=== PATIENT | male | born 1990 | race Caucasian/White ===

== ENCOUNTER 2017-02-15 09:04 | Emergency (ER) | payer MEDICAID ==
[2017-02-15 10:26] VITALS: BP 137/99
--- NOTE | 2017-02-15 10:42 | UC ---
FLU HPI - HPI Summary HPI Summary: beginning night with fevers chills fatigue, cough with blood streaks sore throat-loose /water stool began last night - History of Current Complaint Chief Complaint: UCRespiratory Stated Complaint: COUGH/FEVER Time Seen by Provider: 02/15/17 10:19 Hx Obtained From: Patient Onset/Duration: Sudden Onset, Lasting Days - 2, Still Present Severity Currently: Moderate Severity Initially: Moderate Associated Signs & Symptoms: Positive: Fever, Myalgia, Cough, Sore Throat, Nasal Congestion, Headache, Diarrhea Related Hx: Possible Flu/Infectious Exposure - Allergy/Home Medications Allergies/Adverse Reactions: Allergies Allergy/AdvReac Type Severity Reaction Status Date / Time Lactose Intolerance (GI) Allergy Intermediate Hives Verified 02/15/17 10:26 Home Medications: Home Medications Dextromethorphan-Phenylephrine [Day Time Multi-Symptom Co 10-5-325 mg] 2 cap PO PRN 02/15/17 [History] PMH/Surg Hx/FS Hx/Imm Hx Previously Healthy: Yes GI/ History: Gastroesophageal Reflux - Surgical History Surgical History: None - Family History Known Family History: Positive: None, Diabetes, Other - Lung CA, prostate CA, leukemia Negative: Cardiac Disease, Hypertension - Social History Occupation: Employed Full-time Lives: With Family Alcohol Use: Rare Substance Use Type: Marijuana Substance Use Comment - Amount & Last Used: daily Smoking Status (MU): Heavy Every Day Tobacco Smoker Type: Cigarettes Amount Used/How Often: 1-1.5 PPD Length of Time of Smoking/Using Tobacco: since age 15 Have You Smoked in the Last Year: Yes Household Exposure Type: Cigarettes Cessation Counseling: Counseled 3+Min - 10 Min - Immunization History Most Recent Influenza Vaccination: no Review of Systems Constitutional: Fever, Chills, Fatigue Skin: Negative Eyes: Negative ENT: Sore Throat, Nasal Discharge Respiratory: Cough Cardiovascular: Negative Gastrointestinal: Diarrhea Genitourinary: Negative Motor: Negative Neurovascular: Negative Musculoskeletal: Myalgia Neurological: Headache Psychological: Negative Is Patient Immunocompromised?: No All Other Systems Reviewed And Are Negative: Yes Physical Exam Triage Information Reviewed: Yes Appearance: No Pain Distress, Well-Nourished, Ill-Appearing Vital Signs: Initial Vital Signs Temp 98.1 F 02/15/17 10:18 Pulse 81 02/15/17 10:18 Resp 16 02/15/17 10:18 BP 137/99 01/06/18 10:18 Pulse Ox 97 02/15/17 10:18 Vital Signs Reviewed: Yes Eye Exam: Normal Eyes: Positive: Conjunctiva Clear ENT Exam: Normal ENT: Positive: Normal ENT inspection, Hearing grossly normal, Pharynx normal, TMs normal, Uvula midline. Negative: Nasal congestion, Nasal drainage, Tonsillar swelling, Trismus, Muffled voice, Hoarse voice, Dental tenderness Dental Exam: Normal Neck exam: Normal Neck: Positive: Supple, Nontender, No Lymphadenopathy Respiratory Exam: Normal Respiratory: Positive: Chest non-tender, Lungs clear, Normal breath sounds, No respiratory distress Cardiovascular Exam: Normal Cardiovascular: Positive: RRR, No Murmur, Pulses Normal, Brisk Capillary Refill Musculoskeletal Exam: Normal Musculoskeletal: Positive: Strength Intact, ROM Intact, No Edema Neurological Exam: Normal Neurological: Positive: Alert, Muscle Tone Normal Psychological Exam: Normal Skin Exam: Normal Diagnostics - Laboratory Diagnostic Studies Completed/Ordered: Influenza A (+) Flu Course/Dx - Course Course Of Treatment: Rest increase fluids tylenol ibuprofen tamiflu, nicotine cesation inflormation - Differential Dx/Diagnosis Provider Diagnoses: Influenza A Nicotine dependent Discharge - Discharge Plan Condition: Stable Disposition: HOME Prescriptions: Oseltamivir CAP* [Tamiflu CAP*] 75 mg PO BID #10 cap Patient Education Materials: Influenza (ED), How to Stop Smoking (ED) Forms: *School Release Referrals: Nitin Sy [Primary Care Provider] - If Needed
== END 2017-02-15 11:00 | disposition home or self-care (01) ==
LOC: UCCORT 09:04
DX: J10.1 Influenza due to other identified influenza virus with other respiratory manifestations (principal); R19.7 Diarrhea, unspecified; F17.210 Nicotine dependence, cigarettes, uncomplicated; Z91.011 Allergy to milk products
CPT/HCPCS: 87502; 99212; G0463

== ENCOUNTER 2017-09-01 16:22 | Emergency (ER) | payer OTHER ==
[2017-09-01 16:38] VITALS: BP 130/86
[2017-09-01] MEDS ORDERED: Ketorolac INJ* 60 MG/2 ML VIAL IM ONE (17:12)
[2017-09-01] MEDS ORDERED: LORazepam TAB(*) 1 MG PO ONE (17:13)
--- NOTE | 2017-09-01 17:59 | UC ---
Back Pain HPI - HPI Summary HPI Summary: pt was hiking down a steep hill this weekend when he felt and heard a sudden "pop" with instant pain in his low back. tylenol gives no relief and ice helps a little. he notes his r foot feels numb at times but that occurs on occasion and began prior to this. - History of Current Complaint Chief Complaint: UCBackPain Stated Complaint: LOWER BACK COMP Time Seen by Provider: 09/01/17 17:02 Hx Obtained From: Patient Onset/Duration: Sudden Onset Timing: Constant Pain Intensity: 8 Back Pain: Radiates To - side and up low back area Aggravating Factor(s): Movement Alleviating Factor(s): Rest, Cold Associated Signs And Symptoms: Positive: Other - no saddle anesthesia. Negative : Swelling, Fever, Weakness, Numbness, Tingling, Abdominal Pain, Flank Pain, Bladder Incontinence, Bowel Incontinence - Risk Factors AAA Risk Factors: Negative Cauda Equina Risk Factors: Negative Epidural Abscess Risk Factors: Negative - Allergies/Home Medications Allergies/Adverse Reactions: Allergies Allergy/AdvReac Type Severity Reaction Status Date / Time MS Lactose Intolerance (GI) Allergy Intermediate Hives Verified 02/15/17 10:26 [Lactose Intolerance (GI)] Home Medications: Home Medications Acetaminophen [Tylenol Extra Strength] 1,000 mg PO DAILY 09/01/17 [History Confirmed 09/01/17] Omeprazole CAP* [Prilosec CAP* 20 MG] 40 mg PO DAILY 09/01/17 [History Confirmed 09/01/17] hydrOXYzine HCL TAB* [Atarax 10 MG TAB*] 10 mg PO TID PRN 09/01/17 [History Confirmed 09/01/17] PMH/Surg Hx/FS Hx/Imm Hx GI/ History: Gastroesophageal Reflux Psychological History: Anxiety - Surgical History Surgical History: None - Family History Known Family History: Positive: None, Diabetes, Other - Lung CA, prostate CA, leukemia Negative: Cardiac Disease, Hypertension - Social History Alcohol Use: Rare Substance Use Type: None Substance Use Comment - Amount & Last Used: daily Smoking Status (MU): Former Smoker Type: Cigarettes Amount Used/How Often: 1-1.5 PPD Length of Time of Smoking/Using Tobacco: since age 15 Have You Smoked in the Last Year: Yes Household Exposure Type: Cigarettes - Immunization History Most Recent Influenza Vaccination: no Vaccination Up to Date: Yes Review of Systems Constitutional: Negative Skin: Negative Eyes: Negative ENT: Negative Respiratory: Negative Cardiovascular: Negative Gastrointestinal: Negative Genitourinary: Negative Motor: Negative Neurovascular: Negative Musculoskeletal: Other: - low back pain Neurological: Negative Psychological: Negative Is Patient Immunocompromised?: No All Other Systems Reviewed And Are Negative: Yes Physical Exam Triage Information Reviewed: Yes Appearance: Well-Appearing Vital Signs: Initial Vital Signs Temp 98.1 F 09/01/17 16:33 Pulse 75 09/01/17 16:33 Resp 16 09/01/17 16:33 BP 130/86 09/01/17 16:33 Pulse Ox 99 09/01/17 16:33 Vital Signs Reviewed: Yes Eyes: Positive: Conjunctiva Clear ENT: Positive: Normal ENT inspection Neck: Positive: Supple, Nontender, No Lymphadenopathy, Other: - c-spie non tender Respiratory: Positive: Lungs clear, Normal breath sounds Cardiovascular: Positive: RRR, No Murmur Abdomen Description: Positive: Nontender, No Organomegaly, Soft. Negative: Bruit, CVA Tenderness (R), CVA Tenderness (L), Distended, Guarding Bowel Sounds: Positive: Present Musculoskeletal: Positive: Other: - Thoracic spine non tender but lumbar spine and paraspinal mm tender. spasm lumbar region with limted rom due to pain. No saddle anesthesia. 5/5 strength with 2+ reflexes x4. steady gait. no saddle anesthesia. Neurological: Positive: Alert Psychological: Positive: Age Appropriate Behavior Skin Exam: Normal Diagnostics - Radiology No standard instances Radiology Interpretation Completed By: Radiologist - MPRESSION: 1. NO EVIDENCE FOR FRACTURE. 2. DISC SPACE NARROWING AT THE L5-S1 LEVEL. Back Pain Course/Dx - Course Course Of Treatment: No concern for acute abdomen, infection or cauda equina. - Differential Dx/Diagnosis Provider Diagnoses: acute low back pain. Discharge - Sign-Out/Discharge Documenting (check all that apply): Patient Departure - Discharge Plan Condition: Stable Disposition: HOME Prescriptions: Cyclobenzaprine TAB* [Flexeril 10 MG TAB*] 10 mg PO TID #10 tab Naproxen [Naprosyn 500 mg tab] 500 mg PO BID #10 tablet Patient Education Materials: Acute Low Back Pain (ED) Forms: *Work Release Referrals: Nitin Sy [Primary Care Provider] - 3 Days Additional Instructions: START THE PRESCRIPTION MEDICATIONS TOMORROW MORNING. NO DRIVING FOR THE REST OF TODAY. - Billing Disposition and Condition Condition: STABLE Disposition: Home
--- NOTE | 2017-09-01 18:03 | RAD ---
INDICATION: Severe back pain. COMPARISON: There are no prior studies available for comparison. TECHNIQUE: 3 views of the lumbar spine were obtained including lateral, AP and a coned-down lateral view of the lumbar sacral junction. FINDINGS: The vertebra are in normal alignment. No fracture is seen. There is disc space narrowing at the L5-S1 level. The remaining disc spaces appear maintained. IMPRESSION: 1. NO EVIDENCE FOR FRACTURE. 2. DISC SPACE NARROWING AT THE L5-S1 LEVEL.
== END 2017-09-01 18:44 | disposition home or self-care (01) ==
LOC: UCCORT 16:22
DX: M54.5 Low back pain (principal); K21.9 Gastro-esophageal reflux disease without esophagitis; Z87.891 Personal history of nicotine dependence
CPT/HCPCS: 72100; 81003; 96372; 99212; A9270-GY; G0463; J1885

== ENCOUNTER 2017-10-09 18:31 | Emergency (ER) | payer OTHER ==
[2017-10-09 19:06] VITALS: BP 149/84
--- NOTE | 2017-10-09 19:52 | ED ---
Skin Complaint - HPI Summary HPI Summary: 27 year old male presents with pruritic rash to his groin for past week. States over past couple of days has become painful and is a weepy at time. Denies fever , chills, abdominal pain, nausea, vomiting, dysuria, frequency, urgency, penile discharge, testicular pain or swelling. - History of Current Complaint Chief Complaint: UCSkin Time Seen by Provider: 10/09/17 19:31 Stated Complaint: PERSONAL Hx Obtained From: Patient Onset/Duration: Started Days Ago Timing: Constant Onset Severity: Mild Current Severity: Moderate Pain Intensity: 0 Skin Location: Other: - Groin Character: Pruritus, Painful Aggravating Symptom(s): Clothing, Touch Alleviating Symptom(s): Nothing - Allergy/Home Medications Allergies/Adverse Reactions: Allergies Allergy/AdvReac Type Severity Reaction Status Date / Time MS Lactose Intolerance (GI) Allergy Intermediate Hives Verified 10/09/17 19:06 [Lactose Intolerance (GI)] PMH/Surg Hx/FS Hx/Imm Hx Previously Healthy: Yes Endocrine/Hematology History: Denies: Hx Diabetes Cardiovascular History: Denies: Hx Hypertension Respiratory History: Reports: Hx Asthma - as a child Denies: Hx Chronic Obstructive Pulmonary Disease (COPD) GI History: Reports: Hx Gastroesophageal Reflux Disease Denies: Hx Ulcer History: Denies: Hx Renal Disease Psychiatric History: Reports: Hx Anxiety Infectious Disease History: No Infectious Disease History: Denies: Hx Clostridium Difficile, Hx Hepatitis, Hx Human Immunodeficiency Virus (HIV), Hx of Known/Suspected MRSA, Hx Shingles, Hx Tuberculosis, Hx Known/ Suspected VRE, Hx Known/Suspected VRSA, History Other Infectious Disease, Traveled Outside the [place] in Last 30 Days - Family History Known Family History: Positive: Diabetes, Other - Lung CA, prostate CA, leukemia Negative: Cardiac Disease, Hypertension - Social History Occupation: Employed Full-time Lives: With Family Alcohol Use: Occasionally Substance Use Type: Reports: None Substance Use Comment - Amount & Last Used: daily Smoking Status (MU): Current Some Day Smoker Type: Cigars Amount Used/How Often: 1-1.5 PPD Length of Time of Smoking/Using Tobacco: since age 15 Have You Smoked in the Last Year: Yes Review of Systems Constitutional: Negative Gastrointestinal: Negative Genitourinary: Negative Positive: Rash - See HPI Positive: Anxious All Other Systems Reviewed And Are Negative: Yes Physical Exam Triage Information Reviewed: Yes Vital Signs On Initial Exam: Initial Vitals Temp Pulse Resp BP Pulse Ox 98.9 F 83 16 149/84 98 10/09/17 19:02 10/09/17 19:02 10/09/17 19:02 10/09/17 19:02 10/09/17 19:02 Vital Signs Reviewed: Yes Appearance: Positive: Well-Appearing, No Pain Distress, Well-Nourished Skin: Positive: Warm, Dry, Scaly Skin/Lesions - Bilateral inner thighs and perineum with erythema Respiratory/Lung Sounds: Positive: Clear to Auscultation, Breath Sounds Present Cardiovascular: Positive: RRR, S1, S2. Negative: Murmur Abdomen Description: Positive: Nontender, No Organomegaly, Soft Bowel Sounds: Positive: Present Male Genital Exam: Negative: Epididymal Tenderness, Inguinal Tenderness, Scrotum Tenderness (R), Scrotum Tenderness (L), Testicular Tenderness (R), Testicular Tenderness (L), Urethral Discharge Neurological: Positive: Alert, Oriented to Person Place, Time Diagnostics - Vital Signs Vital Signs Temp Pulse Resp BP Pulse Ox 10/09/17 19:02 98.9 F 83 16 149/84 98 - Laboratory Lab Statement: Any lab studies that have been ordered have been reviewed, and results considered in the medical decision making process. Course/Dx - Course Course Of Treatment: 27-year-old male presents with one-week history of pruritic and tender rash to his groin. Rash is consistent with a tinea cruris. Prescribed clotrimazole cream twice a day for 2 weeks. He was also noted to have an elevated blood pressure at time of exam however he has a history of anxiety and is reporting feeling anxious at the time of exam. His been recommended he follow up with his primary care provider within the next 4 weeks for recheck of blood pressure. - Diagnoses Provider Diagnoses: Tinea cruris Discharge - Sign-Out/Discharge Documenting (check all that apply): Patient Departure All imaging exams completed and their final reports reviewed: No Studies - Discharge Plan Condition: Stable Disposition: HOME Prescriptions: Clotrimazole 1% TOPICAL (NF) [Lotrimin 1% TOPICAL (NF)] 1 applic TOPICAL BID #1 tube Patient Education Materials: Mukul Peraza (ED) Forms: *Work Release Referrals: Nitin Sy [Primary Care Provider] - If Needed Additional Instructions: Use clotrimazole. Apply to affected areas twice a day for 14 days. Be sure to shower daily and dry yourself thoroughly. Your blood pressure in the clinic today was slightly elevated. You should schedule an appointment with you primary care provider within the next 4 weeks to have the rechecked. Follow up sooner if your symptoms do not improve. - Billing Disposition and Condition Condition: STABLE Disposition: Home
== END 2017-10-09 20:02 | disposition home or self-care (01) ==
LOC: UCCORT 18:31
DX: B35.6 Tinea cruris (principal)
CPT/HCPCS: 99212; G0463

== ENCOUNTER 2017-11-25 18:24 | Emergency (ER) | payer OTHER ==
[2017-11-25 19:13] VITALS: BP 138/69
[2017-11-25] MEDS ORDERED: Tetan/Diph/Pertus SYR(Tdap)* 0.5 ML SYR(BOOSTRIX) use SYR IM ONE (19:14)
--- NOTE | 2017-11-25 19:30 | UC ---
Skin Complaint HPI - HPI Summary HPI Summary: 27 yo male presents with laceration to left arm sustained earlier today at work. He says that he was working and brushed up against the fence and sustained a small laceration to his left arm. He is unsure the date of his last tetanus and is most concerned about updating this today. - History of Current Complaint Chief Complaint: UCLaceration Time Seen by Provider: 11/25/17 19:14 Stated Complaint: WC- ARM LACERATION Hx Obtained From: Patient Onset/Duration: Sudden Onset Onset Severity: Mild Current Severity: Mild Pain Intensity: 4 Pain Scale Used: 0-10 Numeric - Allergy/Home Medications Allergies/Adverse Reactions: Allergies Allergy/AdvReac Type Severity Reaction Status Date / Time lactose Allergy Intermediate Hives Verified 11/25/17 19:01 Home Medications: Home Medications FLUoxetine CAP* [Prozac CAP*] 1 tab DAILY 11/25/17 [History Confirmed 11/25/17] Review of Systems Constitutional: Negative Skin: Other - Laceration left arm Respiratory: Negative Cardiovascular: Negative Musculoskeletal: Negative Neurological: Negative Psychological: Negative All Other Systems Reviewed And Are Negative: Yes PMH/Surg Hx/FS Hx/Imm Hx GI/ History: Gastroesophageal Reflux Psychological History: Anxiety, Depression - Surgical History Surgical History: None - Family History Known Family History: Positive: Diabetes, Other - Lung CA, prostate CA, leukemia Negative: Cardiac Disease, Hypertension - Social History Occupation: Employed Full-time Lives: With Family Alcohol Use: Weekly Substance Use Type: None Substance Use Comment - Amount & Last Used: daily Smoking Status (MU): Former Smoker Type: Cigars Amount Used/How Often: 1-1.5 PPD Length of Time of Smoking/Using Tobacco: since age 15 Have You Smoked in the Last Year: Yes When Did the Patient Quit Smoking/Using Tobacco: Nov 2017 Household Exposure Type: Cigarettes - Immunization History Most Recent Influenza Vaccination: no Most Recent Tetanus Shot: unknown Vaccination Up to Date: Yes Physical Exam - Summary Physical Exam Summary: GENERAL: NAD. WDWN. No pain distress. SKIN: LEFT FOREARM: Dorsal aspect with 5mm superficial laceration with 2mm width. Wound clean. No bleeding or FB. NECK: Supple. Nontender. No lymphadenopathy. CHEST: No accessory muscle use. Breathing comfortably and in no distress. CV: Pulses intact. Cap refill <2seconds NEURO: Alert. PSYCH: Age appropriate behavior. Triage Information Reviewed: Yes Vital Signs: Initial Vital Signs Temp 97.9 F 11/25/17 19:03 Pulse 75 11/25/17 19:03 Resp 16 11/25/17 19:03 BP 138/69 11/25/17 19:03 Pulse Ox 99 11/25/17 19:03 Vital Signs Reviewed: Yes Laceration Repair - Laceration Repair 1 Description: Linear Laceration Size After Repair: Length (cm) - 0.5 Modified For Repair: No Cleansing Completed Via Routine Prep: Yes Closure Material: Skin Adhesive Closure Method: Single Layer Suture Of: Skin Course/Dx - Course Course Of Treatment: tdap updated today. Wound was cleansed with NS and approximated with dermabond. Band-aid applied. - Diagnoses Provider Diagnoses: Left arm laceration Discharge - Sign-Out/Discharge Documenting (check all that apply): Patient Departure All imaging exams completed and their final reports reviewed: No Studies - Discharge Plan Condition: Stable Disposition: HOME Patient Education Materials: Tdap and Td Vaccines for Adults (ED) Forms: *Work Release Referrals: Nitin Sy [Primary Care Provider] - Additional Instructions: If you develop a fever, shortness of breath, chest pain, new or worsening symptoms - please call your PCP or go to the ED. 1) Please keep the area covered until well healed - Billing Disposition and Condition Condition: STABLE Disposition: Home - Attestation Statements Provider Attestation: I was available for consult. This patient was seen by the JOSÉ LUIS. The patient was not presented to, seen by, or examined by me. -Narinder
== END 2017-11-25 19:51 | disposition home or self-care (01) ==
LOC: UCCORT 18:24
DX: S41.112A Laceration without foreign body of left upper arm, initial encounter (principal); F41.9 Anxiety disorder, unspecified; F32.9 Major depressive disorder, single episode, unspecified; E73.9 Lactose intolerance, unspecified; W22.8XXA Striking against or struck by other objects, initial encounter; Y92.9 Unspecified place or not applicable; Z87.891 Personal history of nicotine dependence
CPT/HCPCS: 12001; 90471; 90715; 99211; G0463

== ENCOUNTER 2018-06-07 07:35 | Emergency (ER) | payer BC, OTHER ==
[2018-06-07 07:59] VITALS: BP 135/70
--- NOTE | 2018-06-07 08:20 | UC ---
Abdominal Pain Male HPI - HPI Summary HPI Summary: Pt presets with sudden onset abdominal pain, frequent loose stools, with mucus and what bright red blood, that began yesterday morning. Pt states that he has generalized abdominal discomfort, decreased appetite and slight nausea. Pt reports that he is feeling better today and that his stools are beginning to firm. - History of Current Complaint Chief Complaint: UCGI Stated Complaint: DIARRHEA X 24 HOURS Time Seen by Provider: 06/07/18 08:10 Hx Obtained From: Patient Onset/Duration: Sudden Onset, Still Present Timing: Constant Severity Initially: Moderate Severity Currently: Mild Pain Intensity: 5 Location: Diffuse Radiates: Yes Radiates to: LLQ, RLQ Character: Aching, Colicy, Dull Aggravating Factor(s): Food Associated Signs And Symptoms: Positive: Decreased Appetite, Diarrhea - Risk Factors Testicular Torsion: Negative Cardiac Risk Factors: Negative - Allergies/Home Medications Allergies/Adverse Reactions: Allergies Allergy/AdvReac Type Severity Reaction Status Date / Time lactose Allergy Intermediate Hives Verified 06/07/18 07:59 Home Medications: Home Medications Levocetirizine Dihydrochloride [Allergy Relief] 5 mg PO DAILY 06/07/18 [History Confirmed 06/07/18] PMH/Surg Hx/FS Hx/Imm Hx Previously Healthy: Yes - Surgical History Surgical History: None - Family History Known Family History: Positive: None, Diabetes, Other - Lung CA, prostate CA, leukemia, GI disorder-name unknown Negative: Cardiac Disease, Hypertension Family History: Lung CA, prostate CA, leukemia - Social History Occupation: Employed Full-time Lives: With Family Alcohol Use: Occasionally Substance Use Type: None Substance Use Comment - Amount & Last Used: daily Smoking Status (MU): Former Smoker Type: Cigars Amount Used/How Often: 1-1.5 PPD Length of Time of Smoking/Using Tobacco: since age 15 Have You Smoked in the Last Year: No When Did the Patient Quit Smoking/Using Tobacco: September 2017 Household Exposure Type: Cigarettes - Immunization History Most Recent Influenza Vaccination: no Most Recent Tetanus Shot: unknown Vaccination Up to Date: Yes Review of Systems All Other Systems Reviewed And Are Negative: Yes Constitutional: Positive: Chills, Fatigue Skin: Positive: Negative Eyes: Positive: Negative ENT: Positive: Negative Respiratory: Positive: Negative Cardiovascular: Positive: Negative Gastrointestinal: Positive: Abdominal Pain, Diarrhea - improved, described as loose muscus and with thgought to be bright red blood., Nausea Genitourinary: Positive: Negative Motor: Positive: Negative Neurovascular: Positive: Negative Musculoskeletal: Positive: Negative Neurological: Positive: Negative Psychological: Positive: Negative Is Patient Immunocompromised?: No Physical Exam Triage Information Reviewed: Yes Appearance: Well-Appearing Vital Signs: Initial Vital Signs Temp 97.9 F 06/07/18 07:48 Pulse 68 06/07/18 07:48 Resp 18 06/07/18 07:48 BP 135/70 06/07/18 07:48 Pulse Ox 100 06/07/18 07:48 Vital Signs Reviewed: Yes Eye Exam: Normal ENT Exam: Normal Dental Exam: Normal Neck exam: Normal Respiratory Exam: Normal Cardiovascular Exam: Normal Abdomen Description: Positive: Other: - generalized tenderness Bowel Sounds: Positive: Present Musculoskeletal Exam: Normal Neurological Exam: Normal Psychological Exam: Normal Skin Exam: Normal Abd Pain Male Course/Dx - Course Course Of Treatment: I discussed the need for the pt to f/u with pcp. He verbalized understanding and agreed to plan of care. - Differential Dx/Clinical Impression Differential Diagnosis/HQI/PQRI: Diverticulitis Provider Diagnosis: Abdominal pain, Mucous in stools Discharge - Sign-Out/Discharge Documenting (check all that apply): Patient Departure All imaging exams completed and their final reports reviewed: No Studies - Discharge Plan Condition: Stable Disposition: HOME Patient Education Materials: Acute Abdominal Pain (ED), Gas and Bloating (ED) Forms: *Work Release Referrals: Nitin Sy [Primary Care Provider] - As Soon As Possible - Billing Disposition and Condition Condition: STABLE Disposition: Home
== END 2018-06-07 08:33 | disposition home or self-care (01) ==
LOC: UCCORT 07:35
DX: R10.9 Unspecified abdominal pain (principal); R19.5 Other fecal abnormalities; Z87.891 Personal history of nicotine dependence; Z91.011 Allergy to milk products
CPT/HCPCS: 99211; G0463

== ENCOUNTER 2018-12-05 20:08 | Emergency (ER) | payer BC ==
[2018-12-05 20:23] VITALS: BP 143/90
[2018-12-05] MEDS ORDERED: Ondansetron ODT TAB* 4 MG PO ONE (20:36)
[2018-12-05] MEDS ORDERED: Loperamide CAP* 2 MG PO ONE (20:37)
--- NOTE | 2018-12-05 20:43 | UC ---
Abdominal Pain Male HPI - HPI Summary HPI Summary: C/O nausea with vomiting starting yesterday. Diarrhea x 6 today. Last Urine output this evening. - History of Current Complaint Chief Complaint: UCAbdominalPain Stated Complaint: ABDOMINAL PAIN/DIARRHEA Time Seen by Provider: 12/05/18 20:29 Hx Obtained From: Patient Onset/Duration: Sudden Onset, Lasting Days - 2, Worse Since - today Severity Initially: Moderate Severity Currently: Moderate Pain Intensity: 7 Location: Diffuse Radiates: No Character: Cramping, Dull Aggravating Factor(s): Food Associated Signs And Symptoms: Positive: Decreased Appetite, Nausea, Vomiting, Diarrhea. Negative: Constipation, Blood in Stool - Allergies/Home Medications Allergies/Adverse Reactions: Allergies Allergy/AdvReac Type Severity Reaction Status Date / Time lactose Allergy Intermediate Hives Verified 12/05/18 20:17 Home Medications: Home Medications ARIPiprazole TAB* [Abilify TAB*] 1 tab DAILY 12/05/18 [History Confirmed ] Citalopram TAB* [Celexa TAB*] 2 tab PO DAILY 12/05/18 [History Confirmed ] busPIRone TAB* [Buspar TAB *] 1 tab DAILY 12/05/18 [History Confirmed 12/05/18] PMH/Surg Hx/FS Hx/Imm Hx Psychological History: Anxiety - Surgical History Surgical History: None - Family History Known Family History: Positive: None, Diabetes, Other - Lung CA, prostate CA, leukemia, GI disorder-name unknown Negative: Cardiac Disease, Hypertension Family History: Lung CA, prostate CA, leukemia - Social History Occupation: Employed Full-time Lives: With Family Alcohol Use: Occasionally Substance Use Type: None Substance Use Comment - Amount & Last Used: daily Smoking Status (MU): Former Smoker Type: Cigars Amount Used/How Often: 1-1.5 PPD Length of Time of Smoking/Using Tobacco: since age 15 Have You Smoked in the Last Year: No When Did the Patient Quit Smoking/Using Tobacco: September 2017 Household Exposure Type: Cigarettes - Immunization History Most Recent Influenza Vaccination: no Most Recent Tetanus Shot: unknown Vaccination Up to Date: Yes Review of Systems All Other Systems Reviewed And Are Negative: Yes Constitutional: Positive: Chills, Fatigue Gastrointestinal: Positive: Abdominal Pain, Vomiting, Diarrhea, Nausea Is Patient Immunocompromised?: No Physical Exam Triage Information Reviewed: Yes Appearance: No Pain Distress, Well-Nourished, Ill-Appearing Vital Signs: Initial Vital Signs Temp 98.2 F 12/05/18 20:18 Pulse 78 12/05/18 20:18 Resp 16 12/05/18 20:18 BP 143/90 12/05/18 20:18 Pulse Ox 98 12/05/18 20:18 Vital Signs Reviewed: Yes Eyes: Positive: Conjunctiva Clear ENT: Positive: Pharynx normal - mucus membranes moist., TMs normal Neck exam: Normal Respiratory Exam: Normal Cardiovascular Exam: Normal Abdomen Description: Positive: No Organomegaly, Soft. Negative: Nontender - Diffusely tender, McBurney's Point Tenderness, Peritoneal Signs Bowel Sounds: Positive: Present Musculoskeletal Exam: Normal Neurological Exam: Normal Psychological Exam: Normal Skin Exam: Normal Abd Pain Male Course/Dx - Differential Dx/Clinical Impression Differential Diagnosis/HQI/PQRI: Appendicitis, Diverticulitis, Pancreatitis Provider Diagnosis: Viral enteritis Discharge ED - Sign-Out/Discharge Documenting (check all that apply): Patient Departure All imaging exams completed and their final reports reviewed: No Studies - Discharge Plan Condition: Stable Disposition: HOME Prescriptions: Loperamide HCl [Loperamide] 2 mg PO Q3HR PRN #30 capsule MDD 8 PRN Reason: Diarrhea Ondansetron ODT TAB* [Zofran 4 MG Odt TAB*] 4 mg PO Q6H PRN #30 tab.odt PRN Reason: Nausea/Vomiting Patient Education Materials: Gastroenteritis (ED), Ondansetron (By mouth), Loperamide (By mouth) Forms: *Work Release Referrals: Nitin Sy [Primary Care Provider] - - Billing Disposition and Condition Condition: STABLE Disposition: Home
== END 2018-12-05 20:59 | disposition home or self-care (01) ==
LOC: UCCORT 20:08
DX: A08.4 Viral intestinal infection, unspecified (principal); F41.9 Anxiety disorder, unspecified; R53.83 Other fatigue; Z87.891 Personal history of nicotine dependence; Z79.899 Other long term (current) drug therapy
CPT/HCPCS: 99212; A9270-GY; G0463

== ENCOUNTER 2019-02-15 08:36 | Emergency (ER) | payer BC ==
[2019-02-15 08:53] VITALS: BP 144/94
--- NOTE | 2019-02-15 09:10 | UC ---
Respiratory Complaint HPI - HPI Summary HPI Summary: 28-year-old male who has had cough and cold symptoms for over one week he states that he drank some beer last evening and vaped which he hasn't done since when he gave up smoking. He states today he was dizzy like the room spinning and also coughing up brownish sputum and at one point some blood. - History of Current Complaint Chief Complaint: UCGeneralIllness Stated Complaint: COUGHING BLOOD Time Seen by Provider: 02/15/19 09:00 Hx Obtained From: Patient Onset/Duration: Gradual Onset Timing: Constant Severity Initially: Mild Severity Currently: Mild Pain Intensity: 0 Character: Cough: Productive - Productive cough of brownish green sputum. Aggravating Factors: Nothing Alleviating Factors: Nothing Associated Signs And Symptoms: Positive: Dizziness - Patient states that he feels like the room is spinning at times. He has not been drinking any fluids today because he wanted to be seen here this morning., URI, Nasal Congestion, Sinus Discomfort - Patient states his frontal sinuses were painful yesterday but not today. - Allergies/Home Medications Allergies/Adverse Reactions: Allergies Allergy/AdvReac Type Severity Reaction Status Date / Time lactose Allergy Intermediate Hives Verified 02/15/19 08:41 PMH/Surg Hx/FS Hx/Imm Hx Previously Healthy: Yes Cardiovascular History: Other - History of a heart murmur Respiratory History: Asthma - Asthma as a child - Surgical History Surgical History: None - Family History Known Family History: Positive: None, Diabetes, Other - Lung CA, prostate CA, leukemia, GI disorder-name unknown Negative: Cardiac Disease, Hypertension Family History: Lung CA, prostate CA, leukemia - Social History Alcohol Use: Occasionally Substance Use Type: None Substance Use Comment - Amount & Last Used: daily Smoking Status (MU): Former Smoker Type: Cigars Amount Used/How Often: 1-1.5 PPD Length of Time of Smoking/Using Tobacco: since age 15 Have You Smoked in the Last Year: No When Did the Patient Quit Smoking/Using Tobacco: 01/2019 Household Exposure Type: Cigarettes - Immunization History Most Recent Influenza Vaccination: no Most Recent Tetanus Shot: unknown Vaccination Up to Date: Yes Review of Systems All Other Systems Reviewed And Are Negative: Yes ENT: Positive: Nasal Discharge, Sinus Congestion, Sinus Pain/Tenderness - Patient had some frontal sinus pain yesterday but not today. Respiratory: Positive: Cough - Productive cough of brownish green sputum today. Neurological: Positive: Other - Mild dizziness today like the room spinning. No nausea or vomiting. Is Patient Immunocompromised?: No Physical Exam Triage Information Reviewed: Yes Appearance: Well-Appearing, No Pain Distress, Well-Nourished Vital Signs: Initial Vital Signs Temp 97.9 F 02/15/19 08:43 Pulse 94 02/15/19 08:43 Resp 24 02/15/19 08:43 BP 144/94 02/15/19 08:43 Pulse Ox 100 02/15/19 08:43 Vital Signs Reviewed: Yes Eyes: Positive: Conjunctiva Clear, Other: - Cora, EOMI, negative eye drift. ENT: Positive: Pharynx normal, Nasal drainage - Clear nasal coryza, TMs normal, Uvula midline Neck: Positive: Supple, Nontender, No Lymphadenopathy Respiratory: Positive: No respiratory distress, No accessory muscle use, Rhonchi - Mild rhonchi in the right upper lobe posteriorly. Good air movement throughout. Cardiovascular: Positive: RRR, No Murmur, Pulses Normal, Brisk Capillary Refill Musculoskeletal Exam: Normal Musculoskeletal: Positive: Strength Intact, ROM Intact, Other: - Good arm and leg strength against resistance. Neurological Exam: Normal Neurological: Positive: Alert, Muscle Tone Normal, Other: - Good peripheral pulses, neuro sensation capillary refill. Good [id number] bilaterally. While standing to do any other tests the patient states that he feels dizzy and needs to sit down. He is awake and alert and oriented. Psychological Exam: Normal Skin Exam: Normal Respiratory Course/Dx - Course Course Of Treatment: Chest x-ray:REPORT: Clear lungs and pleural spaces. Negative for pneumothorax. The heart, pulmonary vasculature, and mediastinal contours are unremarkable. Unremarkable osseous structures and soft tissue contours. IMPRESSION: #. No etiology for hemoptysis evident. Negative exam. The patient was advised not to vape since he had stop smoking 2 weeks ago. He is to go to the emergency room for any worsening symptoms. He is to go home and rest. He did request a work note for the next 2 days which was given to him. He is also to increase fluids since he hasn't been drinking any water today. He is nontoxic. Because he has been coughing up some bloody sputum, brown sputum greenish sputum over the past week, I am going to treated with an antibiotic. - Differential Dx/Diagnosis Provider Diagnosis: Bronchitis, Vertigo Discharge ED - Sign-Out/Discharge Documenting (check all that apply): Patient Departure All imaging exams completed and their final reports reviewed: Yes - Discharge Plan Condition: Fair Disposition: HOME Prescriptions: Amoxicillin/Clavulanate TAB* [Augmentin TAB 875*] 875 mg PO BID 10 Days #20 tab Meclizine TAB* [Antivert 12.5 TAB*] 25 mg PO TID PRN #10 tab PRN Reason: Dizziness Patient Education Materials: Vertigo (DC), Acute Bronchitis (ED) Forms: *Work Release Referrals: Nitin Sy [Primary Care Provider] - Additional Instructions: Go home and rest, increase fluids, take the antibiotic with food. Take the meclizine as needed for dizziness. Go to the emergency room for any worsening symptoms. - Billing Disposition and Condition Condition: FAIR Disposition: Home
== END 2019-02-15 09:55 | disposition home or self-care (01) ==
LOC: UCCORT 08:36
DX: J40 Bronchitis, not specified as acute or chronic (principal); R42 Dizziness and giddiness; Z87.891 Personal history of nicotine dependence; Z91.011 Allergy to milk products
CPT/HCPCS: 71046; 99212; G0463

== ENCOUNTER 2019-04-17 14:23 | Emergency (ER) | payer BC ==
[2019-04-17 14:47] VITALS: BP 134/85
[2019-04-17 14:55] LABS: Influenza A Molecular Negative (Negative); Influenza B Molecular Negative (Negative)
--- NOTE | 2019-04-17 14:56 | UC ---
UC General HPI - HPI Summary HPI Summary: Hot and cold spells this AM, nausea off/on, pains in mid abdomen, "gas pains" worsened after eating, lightheadedness off/on, - History of Current Complaint Chief Complaint: UCGeneralIllness Stated Complaint: CHILLS/STOMACHE ACHE Time Seen by Provider: 04/17/19 14:32 Hx Obtained From: Patient Onset/Duration: Gradual Onset, Lasting Days Onset Severity: Mild Current Severity: Mild Pain Intensity: 0 Associated Signs & Symptoms: Positive: Cough, Diarrhea, Headache, Nausea - Allergy/Home Medications Allergies/Adverse Reactions: Allergies Allergy/AdvReac Type Severity Reaction Status Date / Time lactose AdvReac Intermediate Diarrhea Verified 04/17/19 14:32 Home Medications: Home Medications Omeprazole CAP (NF) [Prilosec CAP* 20 MG] 40 mg PO DAILY 09/01/17 [History Confirmed 04/17/19] ARIPiprazole TAB* [Abilify TAB*] 1 tab DAILY 12/05/18 [History Confirmed ] Citalopram TAB* [Celexa TAB*] 2 tab PO DAILY 12/05/18 [History Confirmed ] Ondansetron ODT TAB* [Zofran 4 MG Odt TAB*] 4 mg PO Q6H PRN #30 tab.odt [Rx Confirmed 04/17/19] busPIRone TAB* [Buspar TAB *] 1 tab DAILY 12/05/18 [History Confirmed 04/17/19] Meclizine TAB* [Antivert 12.5 TAB*] 25 mg PO TID PRN #10 tab 02/15/19 [Rx Confirmed 04/17/19] PMH/Surg Hx/FS Hx/Imm Hx Previously Healthy: Yes - Surgical History Surgical History: None - Family History Known Family History: Positive: None, Diabetes, Other - Lung CA, prostate CA, leukemia, GI disorder-name unknown Negative: Cardiac Disease, Hypertension Family History: Lung CA, prostate CA, leukemia - Social History Alcohol Use: Occasionally Substance Use Type: None Substance Use Comment - Amount & Last Used: daily Smoking Status (MU): Light Every Day Tobacco Smoker Type: Cigars Amount Used/How Often: 1-1.5 PPD Length of Time of Smoking/Using Tobacco: since age 15 Have You Smoked in the Last Year: No When Did the Patient Quit Smoking/Using Tobacco: 01/2019 Household Exposure Type: Cigarettes - Immunization History Most Recent Influenza Vaccination: no Most Recent Tetanus Shot: unknown Vaccination Up to Date: Yes Review of Systems All Other Systems Reviewed And Are Negative: Yes Constitutional: Positive: Chills, Fatigue ENT: Positive: Sore Throat Respiratory: Positive: Cough Gastrointestinal: Positive: Diarrhea, Nausea Musculoskeletal: Positive: Myalgia Neurological/Mental Status: Positive: Headache Is Patient Immunocompromised?: No Physical Exam Triage Information Reviewed: Yes Appearance: Well-Nourished, Ill-Appearing, Pain Distress Vital Signs: Initial Vital Signs Temp 98.6 F 04/17/19 14:39 Pulse 77 04/17/19 14:39 Resp 16 04/17/19 14:39 BP 134/85 04/17/19 14:39 Pulse Ox 98 04/17/19 14:39 Vital Signs Reviewed: Yes Eye Exam: Normal ENT: Positive: Pharyngeal erythema, Nasal congestion Respiratory Exam: Normal Cardiovascular Exam: Normal Abdominal Exam: Normal Musculoskeletal Exam: Normal Neurological Exam: Normal Psychological Exam: Normal Skin Exam: Normal Course/Dx - Course Course Of Treatment: hx obtained, exam performed, meds reviewed, rapid flu obtained and was negative - Diagnoses Provider Diagnosis: Flu-like symptoms Discharge ED - Sign-Out/Discharge Documenting (check all that apply): Patient Departure All imaging exams completed and their final reports reviewed: No Studies - Discharge Plan Condition: Stable Disposition: HOME Forms: *Work Release Referrals: Nitin Sy [Primary Care Provider] - Additional Instructions: 1.take ibuprofen and tylenol for fevers aches and pains 2. Hydrate 3. Get plenty or rest. - Billing Disposition and Condition Condition: STABLE Disposition: Home
== END 2019-04-17 15:15 | disposition home or self-care (01) ==
LOC: UCCORT 14:23
DX: J02.9 Acute pharyngitis, unspecified (principal); R09.81 Nasal congestion; R53.83 Other fatigue; R19.7 Diarrhea, unspecified; R11.0 Nausea; R51 Headache; R10.9 Unspecified abdominal pain; R42 Dizziness and giddiness; R68.83 Chills (without fever); F17.210 Nicotine dependence, cigarettes, uncomplicated; Z91.011 Allergy to milk products
CPT/HCPCS: 99211; G0463